=== PATIENT | female | born 1980 | race Caucasian/White ===

== ENCOUNTER 2017-02-20 14:27 | Emergency (ER) | payer OTHER ==
[~2017-02-20 14:27] MED LIST: AMPHETAMINE SALTS PO; AT25 PO; ATV.5 PO; AUG875 PO; BIOTIN10 MG PO; CLARIT10 PO; D 5000 PO; K500 PO; MAXALT10 MG PO; NEUR300 PO; NORCO1 TA1 PO; NYS500UDL PO; PERCOCET1 TA2 PO; PR25 PO; PR25R PR; PROBIOTIC PO; PROTONIX PO; REG PO; REG5 PO; SINGULAIR1 PO; TOPAMAX25 PO; TOPXL50 PO; VANCOCIN PO; XYZAL5 MG PO; ZOFRAN4 PO; ZOFRAN8 PO
[2017-05-06] MEDS ORDERED: TAMOXIFEN20 M1 PO ×2 (13:23→13:24)
[2017-05-06] MEDS ORDERED: ADDERALL20 MG PO (13:25)
== END 2017-02-20 15:25 | disposition home or self-care (01) ==
LOC: ER 14:27
DX: G43.909 Migraine, unspecified, not intractable, without status migrainosus (principal); Z85.3 Personal history of malignant neoplasm of breast; Z79.899 Other long term (current) drug therapy
CPT/HCPCS: 96372; 99283; A9270-GY; J1885; J2550; J2800